=== PATIENT | female | born 1980 | race Caucasian/White ===

== ENCOUNTER 2017-08-14 12:04 | Emergency (ER) | payer OTHER ==
[~2017-08-14 12:04] MED LIST: ATENOLOL25 MG PO; HCTZ12.5 MG PO; LEXAPRO20 MG PO; PRAVACHOL20 MG PO
== END 2017-08-14 14:02 | disposition home or self-care (01) ==
LOC: FER 12:04
DX: S16.1XXA Strain of muscle, fascia and tendon at neck level, initial encounter (principal); S39.012A Strain of muscle, fascia and tendon of lower back, initial encounter; S29.012A Strain of muscle and tendon of back wall of thorax, initial encounter; I10 Essential (primary) hypertension; Z88.5 Allergy status to narcotic agent; Z79.899 Other long term (current) drug therapy; V49.40XA Driver injured in collision with unspecified motor vehicles in traffic accident, initial encounter; Y92.410 Unspecified street and highway as the place of occurrence of the external cause
CPT/HCPCS: 72050; 72072; 72110; 99284